=== PATIENT | male | born 1940 | race Caucasian/White ===

== ENCOUNTER 2018-08-12 22:36 | Inpatient (IN) | payer OTHER ==
--- NOTE | 2018-08-12 23:04 | PDOC ---
History of Present Illness - General Chief Complaint: Respiratory Stated Complaint: SIDE PAIN Time Seen by Provider: 08/12/18 22:55 History Source: Patient - History of Present Illness Initial Comments: 08/12/18 23:06 The patient is a 77 year old male with a PMH of Prostate CA (s/p resection)-- presents c/o sharp pain in his back. Patient states he was driving home from dinner in [place] with his family when he felt a sharp pain in his L flank. Pain lasted 30 minutes and was significantly relieved by urination. Also c/o productive (greenish sputum) cough for 1 week w/o fevers/chills, shortness of breath chest pain, lightheadedness, palpitations. States he had stress testing at [facility] last year and it was normal. Patient tachycardic (HR 137), tachypneic (RR 28) and hypoxic (SpO2 89% @ presentation NKDA Surgical: Prostate resection Social: former smoker - 2 PPD for 20+ years; social alcohol, denies recreational drugs PMD: Dr. Quinten Sloan As per EMR, patient evaluated in our ED for diarrhea and weakness as well as head and neck pain in 2012. No previous evaluations for cardiac or pulmonary complaints. Aortic CT in 2013 showed no aneursym. 08/12/18 23:45 Past History - Past Medical History Allergies/Adverse Reactions: Allergies Allergy/AdvReac Type Severity Reaction Status Date / Time No Known Allergies Allergy Verified 08/12/18 22:39 Home Medications: Ambulatory Orders Aspirin/Dipyridamole [Aggrenox] 1 combo PO DAILY 02/12/13 Atorvastatin Ca [Lipitor] 40 mg PO HS 02/12/13 Cyclobenzaprine HCl [Flexeril] 5 mg PO TID #12 tablet 03/06/13 Ibuprofen [Motrin] 800 mg PO TID #20 tablet 03/06/13 Oxycodone HCl/Acetaminophen [Percocet 5-325 mg Tablet] 1 - 2 tab PO Q6H #20 tablet 03/06/13 CVA: Yes (2009) COPD: No HTN: Yes Hypercholesterolemia: Yes - Immunization History Immunization Up to Date: No - Suicide/Smoking/Psychosocial Hx Smoking Status: No Smoking History: Former smoker Have you smoked in the past 12 months: No Number of Cigarettes Smoked Daily: 0 If you are a former smoker, when did you quit?: 35 years ago Information on smoking cessation initiated: No Drug/Substance Use Hx: No Substance Use Type: None Review of Systems - Review of Systems Constitutional: No: Chills, Fever HEENTM: No: Recent change in vision Respiratory: Yes: Cough. No: Shortness of Breath, Hemoptysis Cardiac (ROS): No: Chest Pain, Lightheadedness, Palpitations, Syncope ABD/GI: No: Constipated, Diarrhea, Nausea, Vomiting *Physical Exam - Vital Signs Last Vital Signs Temp Pulse Resp BP Pulse Ox 137 H 28 H 151/75 89 L 08/12/18 22:39 08/12/18 22:39 08/12/18 22:39 08/12/18 22:39 - Physical Exam General Appearance: Yes: Nourished, Appropriately Dressed HEENT: positive: Normal Voice, Hearing Grossly Normal Neck: positive: Trachea midline, Supple Respiratory/Chest: positive: Rapid RR, Wheezing (Bibasilar wheezing) Cardiovascular: positive: S1, S2, Tachycardia Vascular Pulses: Dorsalis-Pedis (R): 2+, Doralis-Pedis (L): 2+ Musculoskeletal: negative: CVA Tenderness (R), CVA Tenderness (L) Extremity: positive: Normal Capillary Refill, Normal Inspection Neurologic: positive: Fully Oriented, Alert Moderate Sedation - Procedure Monitoring Vital Signs: Procedure Monitoring Vital Signs Temperature Pulse Rate 137 H 08/12/18 22:39 Respiratory Rate 28 H 08/12/18 22:39 Blood Pressure 151/75 08/12/18 22:39 O2 Sat by Pulse Oximetry (%) 89 L 08/12/18 22:39 ED Treatment Course - LABORATORY CBC & Chemistry Diagram: 08/12/18 23:40 08/12/18 23:40 Medical Decision Making - Medical Decision Making 08/12/18 23:24 77 year old male in respiratory distress SpO2 94% on 4 L (not on home O2), RR and Tachycardic. Frontal diagnosis: PNA vs. r/o ACS vs. COPD exacerbation. Consider PE, however given low rish factors, will delay CT at this time. Will obtain basic labs, Troponin, EKG, CXR, ABG/VBG. Reassess. 08/13/18 00:05 Labs, ABG, VBG, CXR pending Patient signed out to Dr. Martinez (Resident) and Dr. Lino (Attending) for further management. *DC/Admit/Observation/Transfer Diagnosis at time of Disposition: Hypoxia - Referrals Referrals: Екатерина Sloan MD [Primary Care Provider] - - Patient Instructions - Post Discharge Activity
[2018-08-12] MEDS ORDERED: ALBUTEROL SO4 2.5/IPRATROPIUM 0.5 INH SOL 3 ML VIAL.NEB. NEB ONE ×2 (23:05→23:52)
[2018-08-12] MEDS ORDERED: SODIUM CHLORIDE 0.9% 500 ML INFUS.BAG IV ONE (23:31)
[2018-08-12] MEDS ORDERED: ALBUTEROL SO4 0.083% IH SOL 2.5 MG/3 ML VIAL.NEB. NEB ONE (23:54)
[2018-08-12] MEDS ORDERED: IPRATROPIUM BR 0.02% 0.5 MG/2.5 ML VIAL.NEB. NEB ONE (23:54)
[2018-08-12 23:59] LABS: VENOUS PC02 40.1 mmHg (38-52); VENOUS PH 7.41 (7.32-7.42); VENOUS PO2 32.8 mmHg (28-48)
--- NOTE | 2018-08-13 00:10 | PDOC ---
Attending Attestation - Resident Resident Name: Sarah Carlson - ED Attending Attestation I have performed the following: I have examined & evaluated the patient, The case was reviewed & discussed with the resident, I agree w/resident's findings & plan, Exceptions are as noted - HPI HPI: 08/13/18 00:09 77 yo male p/w left sided back pain that started while driving home Pain relieved after urination 08/13/18 00:10 hypoxic,tachycardic, tachypnic at presentation - Physicial Exam PE: 08/13/18 02:40 wnwd 77 yo male w cough,hypoxic and back pain head ncat neck supple lungs +scattered wheezing cvs tachycardia abd no rebound,no guarding ext no erythema ,no deformities neuro alert,conversant,ambulatory - Medical Decision Making 77 yo male with cough,sob awaiting cta chest, signed out to Dr Knox 08/13/18 17:36
[2018-08-13] MEDS ORDERED: methylPREDNISolone NA SUCC 125 MG/2 ML VIAL IVPUSH ONE (00:14)
--- NOTE | 2018-08-13 00:14 | PDOC ---
*Physical Exam - Vital Signs Last Vital Signs Temp Pulse Resp BP Pulse Ox 137 H 28 H 151/75 89 L 08/12/18 22:39 08/12/18 22:39 08/12/18 22:39 08/12/18 22:39 - Physical Exam Comments: 08/13/18 00:21 GENERAL: Awake, alert, and fully oriented, in no acute distress HEAD: No signs of trauma, normocephalic, atraumatic EYES: PERRLA, EOMI, sclera anicteric, conjunctiva clear ENT: Hearing grossly normal, nares patent, oropharynx clear without exudates. Moist mucosa NECK: Normal ROM, supple, no lymphadenopathy, JVD, or masses LUNGS: + diffuse expiratory rhonci. No distress, speaks full sentences, clear to auscultation bilaterally HEART: Regular rate and rhythm, normal S1 and S2, no murmurs, rubs or gallops, peripheral pulses normal and equal bilaterally. ABDOMEN: Soft, nontender, normoactive bowel sounds. No guarding, no rebound. No masses EXTREMITIES : Normal inspection, Normal range of motion, no edema. No clubbing or cyanosis. SKIN: Warm, Dry, normal turgor, no rashes or lesions noted ED Treatment Course - LABORATORY CBC & Chemistry Diagram: 08/12/18 23:40 08/12/18 23:40 - ADDITIONAL ORDERS Additional order review: Laboratory Results 08/12/18 23:40 VBG pH 7.41 POC VBG pCO2 40.1 POC VBG pO2 32.8 Mixed VBG HCO3 25.4 H - Medications Given in the ED: ED Medications Discontinued Medications Generic Name Dose Route Start Last Admin Trade Name Brady PRN Reason Stop Dose Admin Albuterol/Ipratropium 1 amp 08/12/18 23:05 08/13/18 00:12 Duoneb - NEB 08/12/18 23:06 1 amp ONCE ONE Administration Sodium Chloride 1,000 ml 08/12/18 23:31 08/13/18 00:12 Normal Saline - IV 08/12/18 23:32 1,000 ml ONCE ONE Administration Medical Decision Making - Medical Decision Making 08/13/18 00:16 77 yo M with h/o nephrolithiasis prostate ca. (s/p ressection). who p/w 30 minute, now resolved, left sided flank pain, alleviated with urination. + cough with green sputum production x 1 week. Denies N/V, F/C, CP, SOB, Palpitations, leg pain/swelling, lightheadedness. HR 137, RR 38, 02 89 %, BP 151/75, AF, A& Ox3. Received signout from Dr. Carlson. Aortic CT in 2013 showed no aneursym. ACS/AL r/o. R/o PNA. Possible COPD, asthma, nephrolithaisis/obstructive uroapthy , pyelonephritis, cysitis. Patient pending labs, duonebs, steroids, Flu, CXR. Ed Course: 08/13/18 00:58 EKG: HR 119 . Compared to EKG ( 02-12-2013), patient with RBBB, AVIVA leads II,III ,AvF. Nml interval and axis duration. Q waves lead II, AvF. Nml R wave progression. 08/13/18 01:01 CBC,CMP: Unremarkable Trop: Neg 08/13/18 01:44 CXR: Increased interstitial markings. 08/13/18 02:00 VBG: Unremarkable Pending CT CHEST 08/13/18 02:09 Pt. signed out to night team. Pending CT CHEST *DC/Admit/Observation/Transfer Diagnosis at time of Disposition: Hypoxia - Referrals Referrals: Екатерина Sloan MD [Primary Care Provider] - - Patient Instructions - Post Discharge Activity
[2018-08-13] MEDS ORDERED: methylPREDNISolone NA SUCC 125 MG/2 ML VIAL ONE (00:18)
[2018-08-13 00:27] LABS: BASO % 0.4 % (0-2.0); EOS % 0.4 % (0-4.5); HEMOGLOBIN 13.8 GM/dL (11.7-16.9); LYMPH % 6.6 % (8-40); MCH 30.4 pg (25.7-33.7); MCHC 35.4 g/dl (32.0-35.9); MEAN CELL VOLUME 85.8 fl (80-96); MEAN PLT VOLUME 9.6 fl (7.5-11.1); MONO % 9.4 % (3.8-10.2); NEUT % 83.2 % (42.8-82.8); PLATELET COUNT 285 K/MM3 (134-434); RBC 4.55 M/mm3 (4.00-5.60); RDW 13.7 % (11.9-15.9); WHITE BLOOD COUNT 9.3 K/mm3 (4.0-10.0)
[2018-08-13 00:43] LABS: ALBUMIN 3.2 g/dl (3.4-5.0); ALK PHOS 104 U/L (45-117); ANION GAP 6 MMOL/L (8-16); BILIRUBIN,TOTAL 0.4 mg/dL (0.2-1); BLOOD UREA NITROGEN 16 mg/dL (7-18); CALCIUM 8.5 mg/dL (8.5-10.1); CHLORIDE 103 mmol/L (98-107); CO2 27 mmol/L (21-32); CREATININE 0.9 mg/dL (0.55-1.3); GLUCOSE,RANDOM 283 mg/dL (74-106); POTASSIUM 4.2 mmol/L (3.5-5.1); SGOT/AST 25 U/L (15-37); SGPT/ALT 34 U/L (13-61); SODIUM 137 mmol/L (136-145); TOT PROT 6.8 g/dl (6.4-8.2)
--- NOTE | 2018-08-13 02:25 | PDOC ---
*Physical Exam - Vital Signs Last Vital Signs Temp Pulse Resp BP Pulse Ox 137 H 28 H 151/75 89 L 08/12/18 22:39 08/12/18 22:39 08/12/18 22:39 08/12/18 22:39 ED Treatment Course - LABORATORY CBC & Chemistry Diagram: 08/12/18 23:40 08/12/18 23:40 - ADDITIONAL ORDERS Additional order review: Laboratory Results 08/12/18 08/12/18 23:40 23:40 VBG pH 7.41 POC VBG pCO2 40.1 POC VBG pO2 32.8 Mixed VBG HCO3 25.4 H Sodium 137 Potassium 4.2 Chloride 103 Carbon Dioxide 27 Anion Gap 6 L BUN 16 Creatinine 0.9 Creat Clearance w eGFR > 60 Random Glucose 283 H Calcium 8.5 Total Bilirubin 0.4 AST 25 ALT 34 Alkaline Phosphatase 104 Creatine Kinase 144 Troponin I < 0.02 B-Natriuretic Peptide 157.0 Total Protein 6.8 Albumin 3.2 L 08/12/18 23:40 RBC 4.55 MCV 85.8 MCHC 35.4 RDW 13.7 MPV 9.6 D Neutrophils % 83.2 H Lymphocytes % 6.6 L D Monocytes % 9.4 Eosinophils % 0.4 D Basophils % 0.4 - Medications Given in the ED: ED Medications Discontinued Medications Generic Name Dose Route Start Last Admin Trade Name Ahmetq PRN Reason Stop Dose Admin Albuterol/Ipratropium 1 amp 08/12/18 23:05 08/13/18 00:12 Duoneb - NEB 08/12/18 23:06 1 amp ONCE ONE Administration Methylprednisolone Sodium Succinate 125 mg 08/13/18 00:14 08/13/18 00:21 Solu-Medrol - IVPUSH 08/13/18 00:15 125 mg ONCE ONE Administration Sodium Chloride 1,000 ml 08/12/18 23:31 08/13/18 00:12 Normal Saline - IV 08/12/18 23:32 1,000 ml ONCE ONE Administration Medical Decision Making - Medical Decision Making 08/13/18 02:[address] Martinez. Patient is a 77 yo male w/ pmh of prostate CA s/p resection who presents for evaluation of cough with SOB and L flank pain ( resolved). Patient CXR concerning for possible infiltrate. Patient currently pending chest CTA for further evaluation. 08/13/18 03:58 Patient noted to have bilateral lobe infiltrate. Also scattered liver foci concerning for cysts vs. neoplasm. In setting of pneumonia with increased oxygen requirement admitting patient for pneumonia treatment and further evaluation. *DC/Admit/Observation/Transfer Diagnosis at time of Disposition: Hypoxia, Liver disease, unspecified Pneumonia Qualifiers: Pneumonia type: due to unspecified organism Laterality: bilateral Lung location : unspecified part of lung Qualified Code(s): J18.9 - Pneumonia, unspecified organism - Discharge Dispostion Decision to Admit order: Yes - Prescriptions Prescriptions: Albuterol 2.5/Ipratropium 0.5 [Duoneb -] 1 neb IH QID PRN #1 vial.neb. PRN Reason: Cough Azithromycin [Zithromax Tri-Sreedhar (3 DAYS) -] 500 mg PO DAILY #3 tablet Prednisone [Prednisone 50 MG TABLETS] 50 mg PO DAILY #4 tablet MDD 1 tab - Referrals Referrals: Екатерина Sloan MD [Primary Care Provider] - - Patient Instructions - Post Discharge Activity
[2018-08-13] MEDS ORDERED: AZITHROMYCIN IVPB 500 MG in DEXTROSE 5%-WATER - 250 ML IVPB ONE (03:58)
[2018-08-13] MEDS ORDERED: CEFTRIAXONE 1,000 MG in DEXTROSE 5%-WATER - 50 ML IVPB ONE (03:58)
[2018-08-13] MEDS ORDERED: AZITHROMYCIN IVPB 500 MG/250 ML BAG IVPB ONE (06:45)
[2018-08-13] MEDS ORDERED: CEFTRIAXONE 1 GM/50 ML BAG ONE (06:46)
[2018-08-13 07:49] LABS: URINE APPEARANCE CLEAR; URINE BILIRUBIN NEGATIVE (<2.0 mg/dL); URINE COLOR YELLOW; URINE GLUCOSE (UA) 3+ (NEGATIVE); URINE KETONE NEGATIVE (NEGATIVE); URINE LEUK ESTERASE NEGATIVE (NEGATIVE); URINE NITRITE NEGATIVE (NEGATIVE); URINE PROTEIN 1+ (NEGATIVE); URINE UROBILINOGEN NEGATIVE mg/dL (0.2-1.0)
[2018-08-13 07:52] LABS: BASO % 0.2 % (0-2.0); HEMATOCRIT 38.1 % (35.4-49); HEMOGLOBIN 13.2 GM/dL (11.7-16.9); LYMPH % 6.1 % (8-40); MCH 29.8 pg (25.7-33.7); MCHC 34.7 g/dl (32.0-35.9); MEAN PLT VOLUME 9.6 fl (7.5-11.1); MONO % 3.7 % (3.8-10.2); PLATELET COUNT 269 K/MM3 (134-434); RBC 4.43 M/mm3 (4.00-5.60); RDW 13.6 % (11.9-15.9); WHITE BLOOD COUNT 11.9 K/mm3 (4.0-10.0)
[2018-08-13 08:09] LABS: CALCIUM OXALATE CRYSTALS RARE /hpf (NONE SEEN); URINE MUCUS RARE
[2018-08-13 08:29] LABS: ALK PHOS 95 U/L (45-117); ANION GAP 10 MMOL/L (8-16); BILIRUBIN,TOTAL 0.5 mg/dL (0.2-1); BLOOD UREA NITROGEN 13 mg/dL (7-18); CALCIUM 8.6 mg/dL (8.5-10.1); CHLORIDE 106 mmol/L (98-107); CO2 24 mmol/L (21-32); CREATININE 0.6 mg/dL (0.55-1.3); GLUCOSE,RANDOM 256 mg/dL (74-106); SGOT/AST 22 U/L (15-37); SGPT/ALT 31 U/L (13-61); SODIUM 139 mmol/L (136-145); TOT PROT 6.1 g/dl (6.4-8.2)
[2018-08-13 08:56] VITALS: BMI 23.6
[2018-08-13] MEDS ORDERED: PIPERACILLIN/TAZOB 2.25 GM 3.375 GM in DEXTROSE 5%-WATER - 50 ML IVPB SCH (09:00)
[2018-08-13] MEDS ORDERED: PIPERACILLIN/TAZOBACTAM 2.25 GM VIAL IVPB ONE ×2 (09:25→09:30)
[2018-08-13] MEDS ORDERED: DEXTROSE 5%-WATER - 50 ML IVPB ONE ×2 (09:25→09:30)
[2018-08-13] MEDS: ASPIRIN 81 MG CHEWABLE TABLETS PO SCH (09:26)
--- NOTE | 2018-08-13 10:00 | EKG ---
Test Reason : Blood Pressure : / mmHG Vent. Rate : 119 BPM Atrial Rate : 119 BPM P-R Int : 166 ms QRS Dur : 142 ms QT Int : 324 ms P-R-T Axes : 054 059 028 degrees QTc Int : 455 ms SINUS TACHYCARDIA RIGHT BUNDLE BRANCH BLOCK POSSIBLE INFERIOR INFARCT (CITED ON OR BEFORE 12-FEB-2013) ABNORMAL ECG Confirmed by Daniel Quiñonez MD ([id number]) on 08/13/2018 10:00:23 AM Referred By: Confirmed By:Daniel Quiñonez MD
--- NOTE | 2018-08-13 10:44 | PN ---
Progress Note (short form) - Note Progress Note: ID CONSULT DICTATED COMMUNITY ACQUIRED VS. ATYPICAL PNEUMONIA R/O SEPSIS SECONDARY TO PNEUMONIA AWAIT WORKUP EMPIRIC CEFTRIAXONE/ ZITHROMAX
--- NOTE | 2018-08-13 11:20 | CONS ---
DATE OF CONSULTATION: DATE OF DICTATION: 08/13/2018 HISTORY: The patient is a 77-year-old male evaluated for pneumonia. He was admitted to the hospital August 12, 2018. He developed abrupt onset of left flank pain. The patient states he was driving home from dinner when he developed abrupt onset of left-sided flank pain. It lasted approximately 30 minutes and was relieved by urination. The patient thought that this pain was similar to the pain he experienced when he had a kidney stone years ago. Over the past 1 week he has had respiratory tract symptoms including cough productive of greenish sputum and dyspnea on exertion. He presented to the emergency room where he was tachycardic, tachypneic, and hypoxemic. A CT angiogram was performed and shows bibasilar consolidations left greater than right. The patient denies any fever or chills. No known ill contacts. No recent travel. No recent hospitalizations. He did not receive influenza vaccine. The patient states he did receive pneumococcal vaccine years ago, however, had an adverse reaction to it. PAST MEDICAL HISTORY: Positive for stroke, hypertension, hyperlipidemia, nephrolithiasis, prostate cancer. PAST SURGICAL HISTORY: Status post prostate resection and laser lithotripsy. SOCIAL HISTORY: He is a former smoker. Occasional ETOH. Lives at home with family members. SYSTEMS REVIEW: Neurologic: No loss of consciousness, seizure activity, focal weakness. Cardiac: Negative chest pain or palpitations. Respiratory: As per HPI. Gastrointestinal: Negative vomiting or diarrhea. Genitourinary: As per HPI. MEDICATIONS: Include Aggrenox, Lipitor, Flexeril, Motrin, Percocet. LABORATORY DATA: White count 11.9, hematocrit 38.1, platelet count 269, BUN 13, creatinine 0.6. Liver enzymes normal. Urinalysis: 2 white cells. Influenza swab negative. PHYSICAL EXAMINATION: General: He is weak appearing. He is supine in bed. He is slightly short of breath at rest. Vital Signs: Temperature 97.5, blood pressure 129/76, pulse 75 and regular, respirations 20 per minute. HEENT: Sclerae anicteric. Heart: S1, S2. Lungs: Rales at the bases bilaterally. Abdomen: Soft. No tenderness elicited. No CVA tenderness. Extremities: Negative for edema. IMPRESSION: 1. Community-acquired versus atypical pneumonia. 2. Rule out sepsis secondary to pneumonia. PLAN: We will obtain blood cultures, urine Legionella, pneumococcal antigens, sputum culture. Empiric antibiotic coverage for community-acquired versus atypical pneumonia with ceftriaxone 2 g IV piggyback daily and Zithromax 500 mg daily. Influenza vaccine and pneumococcal vaccine if the patient is agreeable. Await official reading of CAT scan of the chest. We will follow. Thank you for the kind referral. JEWELL PLUMMER M.D. [id number]
--- NOTE | 2018-08-13 12:30 | HP ---
Admitting History and Physical - Admission Chief Complaint: c/o of rt back pain resolved w urination. 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 Pulmonary: Yes: Other (sob) Endocrine: Yes: Diabetes Mellitus - Past Surgical History Past Surgical History: Yes: None - Smoking History Smoking history: Former smoker Have you smoked in the past 12 months: No Aproximately how many cigarettes per day: 0 If you are a former smoker, when did you quit?: 35 years ago - Alcohol/Substance Use Hx Alcohol Use: No Home Medications - Allergies Allergies/Adverse Reactions: Allergies Allergy/AdvReac Type Severity Reaction Status Date / Time No Known Allergies Allergy Verified 08/12/18 22:39 - Home Medications Home Medications: Ambulatory Orders Aspirin/Dipyridamole [Aggrenox] 1 combo PO DAILY 02/12/13 Atorvastatin Ca [Lipitor] 40 mg PO HS 02/12/13 Cyclobenzaprine HCl [Flexeril] 5 mg PO TID #12 tablet 03/06/13 Ibuprofen [Motrin] 800 mg PO TID #20 tablet 03/06/13 Oxycodone HCl/Acetaminophen [Percocet 5-325 mg Tablet] 1 - 2 tab PO Q6H #20 tablet 03/06/13 Albuterol 2.5/Ipratropium 0.5 [Duoneb -] 1 neb IH QID PRN #1 vial.neb. 08/13/18 Azithromycin [Zithromax Tri-Sreedhar (3 DAYS) -] 500 mg PO DAILY #3 tablet 08/13/18 Prednisone [Prednisone 50 MG TABLETS] 50 mg PO DAILY #4 tablet MDD 1 tab Family Disease History - Family Disease History Family History: Unremarkable Review of Systems - Review of Systems Respiratory: reports: Cough Physical Examination Vital Signs: Vital Signs Temperature 97.5 F L 08/13/18 08:45 Pulse Rate 75 08/13/18 08:45 Respiratory Rate 20 08/13/18 08:45 Blood Pressure 129/71 08/13/18 08:45 O2 Sat by Pulse Oximetry (%) 93 L 08/13/18 08:45 Respiratory: Yes: Diminished Labs: CBC, BMP 08/13/18 07:15 08/13/18 07:15 Assessment/Plan id pulm antibiotics supportive lung care incentive spiroi
--- NOTE | 2018-08-13 12:45 | CON.PULM ---
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 Admitted via the ER due to sharp pain in his left back. For the last several days there has been experiencing congested cough with green /yellow phlegm. Has been taking several OTC meds without relief. No travel history or sick contacts. No hemoptysis. CT: Bibasilar / lingular infiltrates with associated atelectasis / mediastinal adenopathy: 1.6 x 1.5 & 1.8 x 1.2 cm He has not had previous CT chest imaging for comparison - History Source History Provided By: Patient Limitations to Obtaining History: Poor Historian - Past Medical History [employer]: Yes: TIA Pulmonary: Yes: Bronchitis, Other (sob). No: Asthma, O2 Dependent, Pneumonia, Previously Intubated, Pulmonary Embolus, Sleep Apnea Endocrine: Yes: Diabetes Mellitus - Past Surgical History Past Surgical History: Yes: None - Alcohol/Substance Use Hx Alcohol Use: No - Smoking History Smoking history: Former smoker Have you smoked in the past 12 months: No Aproximately how many cigarettes per day: 0 If you are a former smoker, when did you quit?: 35 years ago Home Medications - Allergies Allergies/Adverse Reactions: Allergies Allergy/AdvReac Type Severity Reaction Status Date / Time No Known Allergies Allergy Verified 08/12/18 22:39 - Home Medications Home Medications: Ambulatory Orders Aspirin/Dipyridamole [Aggrenox] 1 combo PO DAILY 02/12/13 Atorvastatin Ca [Lipitor] 40 mg PO HS 02/12/13 Cyclobenzaprine HCl [Flexeril] 5 mg PO TID #12 tablet 03/06/13 Ibuprofen [Motrin] 800 mg PO TID #20 tablet 03/06/13 Oxycodone HCl/Acetaminophen [Percocet 5-325 mg Tablet] 1 - 2 tab PO Q6H #20 tablet 03/06/13 Albuterol 2.5/Ipratropium 0.5 [Duoneb -] 1 neb IH QID PRN #1 vial.neb. 08/13/18 Azithromycin [Zithromax Tri-Sreedhar (3 DAYS) -] 500 mg PO DAILY #3 tablet 08/13/18 Prednisone [Prednisone 50 MG TABLETS] 50 mg PO DAILY #4 tablet MDD 1 tab Review of Systems - Review of Systems Constitutional: reports: Fever, Malaise. denies: Chills, Night Sweats, Unintentional Wgt. Loss, Weakness Eyes: reports: No Symptoms HENT: reports: No Symptoms, Mouth Swelling Cardiovascular: reports: Shortness of Breath. denies: Chest Pain, Edema, Palpitations Respiratory: reports: Cough, SOB on Exertion. denies: Hemoptysis, Snoring, SOB , Wheezing Gastrointestinal: reports: No Symptoms Genitourinary: reports: Flank Pain Breasts: reports: No Symptoms Reported Musculoskeletal: reports: No Symptoms Integumentary: reports: No Symptoms Neurological: reports: No Symptoms Endocrine: reports: No Symptoms Hematology/Lymphatic: reports: No Symptoms Psychiatric: reports: No Symptoms Physical Exam Vital Sings: Vital Signs Temperature 97.5 F L 08/13/18 08:45 Pulse Rate 75 08/13/18 08:45 Respiratory Rate 20 08/13/18 08:45 Blood Pressure 129/71 08/13/18 08:45 O2 Sat by Pulse Oximetry (%) 93 L 08/13/18 08:45 Constitutional: Yes: No Distress, Calm Eyes: Yes: Conjunctiva Clear, EOM Intact HENT: Yes: Atraumatic, Normocephalic Neck: Yes: Supple, Trachea Midline Cardiovascular: Yes: Regular Rate and Rhythm Respiratory: Yes: Cough, Diminished, Rhonchi, SOB on Exertion. No: Accessory Muscle Use, Rales, SOB, Stridor, Tachypnea, Wheezes ...Inspection: Yes: WNL ...Clubbing: No Gastrointestinal: Yes: Normal Bowel Sounds, Soft Renal/: Yes: WNL Musculoskeletal: Yes: WNL Extremities: Yes: WNL Edema: No Peripheral Pulses WNL: Yes Integumentary: Yes: WNL Neurological: Yes: WNL, Alert, Oriented ...Motor Strength: WNL Psychiatric: Yes: WNL, Alert, Oriented Labs: CBC, BMP 08/13/18 07:15 08/13/18 07:15 Imaging - Results Chest X-ray: Report Reviewed, Image Reviewed Cat Scan: Report Reviewed, Image Reviewed Problem List - Problems (1) Atelectasis Code(s): J98.11 - ATELECTASIS (2) Mediastinal lymphadenopathy Code(s): R59.0 - LOCALIZED ENLARGED LYMPH NODES (3) Hypoxia Code(s): R09.02 - HYPOXEMIA (4) Pneumonia Code(s): J18.9 - PNEUMONIA, UNSPECIFIED ORGANISM Qualifiers: Pneumonia type: due to unspecified organism Laterality: bilateral Lung location: unspecified part of lung Qualified Code(s): J18.9 - Pneumonia, unspecified organism Assessment/Plan ABX per ID O2 as needed Check sputum Check urine antigen VTE prophylaxis Should have baseline PFTs after stable as an outpatient No smoking BD TX PRN No indication for systemic steroids at this time Can consider repeat imaging in about 6 weeks after discharge to document resolution of changes and mediastinal adenopathy Will follow Thank you. Dr Green
[2018-08-13] MEDS: metFORMIN HCL 500 MG TABLET (FP) PO SCH (16:24)
[2018-08-13] MEDS ORDERED: INSULIN (NOVOLOG) ASPART 100 UNITS/ML 10ML VIAL SQ ONE (19:30)
[2018-08-14] MEDS: metFORMIN HCL 500 MG TABLET (FP) PO SCH ×2 (06:12→17:10)
[2018-08-14] MEDS ORDERED: INSULIN (LEVEMIR) 100 UNITS/ML UNITS SQ ONE (07:00)
[2018-08-14 07:34] LABS: BASO % 0.8 % (0-2.0); HEMATOCRIT 38.8 % (35.4-49); HEMOGLOBIN 12.5 GM/dL (11.7-16.9); LYMPH % 8.7 % (8-40); MCH 27.8 pg (25.7-33.7); MCHC 32.2 g/dl (32.0-35.9); MEAN CELL VOLUME 86.2 fl (80-96); MEAN PLT VOLUME 9.5 fl (7.5-11.1); MONO % 8.1 % (3.8-10.2); NEUT % 82.4 % (42.8-82.8); PLATELET COUNT 319 K/MM3 (134-434); RDW 13.5 % (11.9-15.9)
[2018-08-14 07:38] LABS: ANION GAP 9 MMOL/L (8-16); BLOOD UREA NITROGEN 19 mg/dL (7-18); CALCIUM 9.1 mg/dL (8.5-10.1); CHLORIDE 107 mmol/L (98-107); CO2 25 mmol/L (21-32); CREATININE 0.6 mg/dL (0.55-1.3); GLUCOSE,RANDOM 251 mg/dL (74-106); SODIUM 141 mmol/L (136-145)
[2018-08-14] MEDS: CEFTRIAXONE 2 GM in DEXTROSE 5%-WATER 100 ML IVPB SCH (09:41)
[2018-08-14] MEDS: amLODIPine BESYLATE 10 MG TABLET (FP) PO SCH (09:41)
[2018-08-14] MEDS: ASPIRIN 81 MG CHEWABLE TABLETS PO SCH (09:41)
[2018-08-14] MEDS: AZITHROMYCIN IVPB 500 MG/250 ML BAG IVPB SCH (10:36)
--- NOTE | 2018-08-14 13:17 | PN ---
Progress Note, Physician Chief Complaint: feels better less cogh vss - Current Medication List Current Medications: Active Medications Amlodipine Besylate (Norvasc -) 10 mg PO DAILY [facility] Last Admin: 08/14/18 09:41 Dose: 10 mg Aspirin (Asa -) 81 mg PO DAILY [facility] Last Admin: 08/14/18 09:41 Dose: 81 mg Ceftriaxone Sodium 2 gm/ (Dextrose) 100 mls @ 200 mls/hr IVPB DAILY [facility]; Protocol Last Admin: 08/14/18 09:41 Dose: 200 mls/hr Azithromycin (Zithromax 500mg Ivpb (Pre-Docked)) 500 mg in 250 mls @ 250 mls/ hr IVPB DAILY [facility] Last Admin: 08/14/18 10:36 Dose: 250 mls/hr Ipratropium [place] (Atrovent 0.02% Nebulizer -) 1 amp NEB Q6H PRN PRN Reason: DYSPEPSIA Stop: 08/20/18 09:57 Metformin HCl (Glucophage -) 1,000 mg PO BID@0700,1630 [facility] Last Admin: 08/14/18 06:12 Dose: 1,000 mg - Objective Vital Signs: Vital Signs Temperature 98.9 F 08/14/18 10:00 Pulse Rate 78 08/14/18 10:00 Respiratory Rate 20 08/14/18 10:00 Blood Pressure 141/79 08/14/18 10:00 O2 Sat by Pulse Oximetry (%) 95 08/14/18 09:00 Constitutional: Yes: Well Nourished Eyes: Yes: WNL HENT: Yes: WNL Neck: Yes: WNL Cardiovascular: Yes: WNL Respiratory: Yes: Rhonchi Gastrointestinal: Yes: WNL ...Rectal Exam: Yes: Deferred Genitourinary: Yes: WNL Breast(s): Yes: WNL Musculoskeletal: Yes: WNL Labs: CBC, BMP 08/14/18 06:00 08/14/18 06:00 Assessment/Plan gu f/u watch wbc ? higher sono abd son cocerned liver ? hemangiomas will do ct chest 3 to 4 mths f/u cxr on sunday to pneumonia resolving
[2018-08-14] MEDS ORDERED: TUBERCULIN PPD 5 TU/0.1ML SYRINGE (IN PATIENT USE ONLY) ID ONE (13:18)
[2018-08-14] MEDS: SODIUM CHLORIDE 0.45% 1,000 ML IV SCH (13:57)
--- NOTE | 2018-08-14 14:35 | PN ---
Progress Note (short form) - Note Progress Note: reports clinical improvement less congestion still with cough no fever last travel to [place] in april, returned in May Vital Signs Period Temp Pulse Resp BP Sys/Vu Pulse Ox Last 24 Hr 97.4 F-98.9 F 71-103 18-21 113-141/60-88 95-98 cor-rrr lungs bilateral rhonchi abd soft,nt ext no edema CBC, BMP 08/14/18 06:00 08/14/18 06:00 Microbiology 08/14/18 11:35 Sputum - Expectorated Gram Stain - Final 08/14/18 11:35 Urine For Antigen Detection Legionella Antigen - Final 08/14/18 11:35 Urine For Antigen Detection Streptococcus pneumoniae Antigen (M - Final 08/13/18 10:54 Blood - Peripheral Venous Blood Culture - Preliminary NO GROWTH OBTAINED AFTER 24 HOURS, INCUBATION TO CONTINUE FOR 4 DAYS. 08/13/18 11:00 Blood - Peripheral Venous Blood Culture - Preliminary NO GROWTH OBTAINED AFTER 24 HOURS, INCUBATION TO CONTINUE FOR 4 DAYS. a/p multilobar pneumonia suspect leukocytosis is steroid effect (received steroids yesterday) continue rocephin/zithromax clinically improved
--- NOTE | 2018-08-14 15:50 | PN ---
Progress Note, Physician History of Present Illness: PULMONARY ALERT,FEELING BETTER,LESS COUGH,LESS CONGESTED - Current Medication List Current Medications: Active Medications Amlodipine Besylate (Norvasc -) 10 mg PO DAILY [facility] Last Admin: 08/14/18 09:41 Dose: 10 mg Aspirin (Asa -) 81 mg PO DAILY [facility] Last Admin: 08/14/18 09:41 Dose: 81 mg Ceftriaxone Sodium 2 gm/ (Dextrose) 100 mls @ 200 mls/hr IVPB DAILY [facility]; Protocol Last Admin: 08/14/18 09:41 Dose: 200 mls/hr Azithromycin (Zithromax 500mg Ivpb (Pre-Docked)) 500 mg in 250 mls @ 250 mls/ hr IVPB DAILY [facility] Last Admin: 08/14/18 10:36 Dose: 250 mls/hr Sodium Chloride (1/2 Normal Saline) 1,000 mls @ 75 mls/hr IV ASDIR [facility] Last Admin: 08/14/18 13:57 Dose: 75 mls/hr Ipratropium [place] (Atrovent 0.02% Nebulizer -) 1 amp NEB Q6H PRN PRN Reason: DYSPEPSIA Stop: 08/20/18 09:57 Metformin HCl (Glucophage -) 1,000 mg PO BID@0700,1630 [facility] Last Admin: 08/14/18 06:12 Dose: 1,000 mg - Objective Vital Signs: Vital Signs Temperature 98.9 F 08/14/18 10:00 Pulse Rate 78 08/14/18 10:00 Respiratory Rate 20 08/14/18 10:00 Blood Pressure 141/79 08/14/18 10:00 O2 Sat by Pulse Oximetry (%) 95 08/14/18 09:00 Constitutional: Yes: Well Nourished, Calm Eyes: Yes: WNL HENT: Yes: WNL Neck: Yes: WNL Cardiovascular: Yes: Regular Rate and Rhythm, S1, S2 Respiratory: Yes: Rhonchi (SCATTERED RITA RHONCHI) Gastrointestinal: Yes: Normal Bowel Sounds, Soft Extremities: Yes: WNL Edema: No Labs: CBC, BMP 08/14/18 06:00 08/14/18 06:00 Assessment/Plan Problem List - Problems (1) Atelectasis Code(s): J98.11 - ATELECTASIS (2) Mediastinal lymphadenopathy Code(s): R59.0 - LOCALIZED ENLARGED LYMPH NODES (3) Hypoxia Code(s): R09.02 - HYPOXEMIA (4) Pneumonia Code(s): J18.9 - PNEUMONIA, UNSPECIFIED ORGANISM Qualifiers: Pneumonia type: due to unspecified organism Laterality: bilateral Lung location: unspecified part of lung Qualified Code(s): J18.9 - Pneumonia, unspecified organism Assessment/Plan ABX per ID O2 as needed VTE prophylaxis PFTs as an outpatient No smoking BD TX PRN repeat imaging in about 6 weeks after discharge to document resolution of changes and mediastinal adenopathy DR [place]ISH
--- NOTE | 2018-08-14 17:17 | CONSULT ---
Consult Consult Specialty:: UROLOGY Reason for Consultation:: Left Renal stone - History of Present Illness Chief Complaint: 77 Y/O Male patient with BPH admitted for Pneumonia treatment 2 days ago, he has history of Left flank pain 3 days on/ off scale 3/10. voiding well. Renal U/S show left renal stone 7 mm no hydro. thicken bladder wall. S.creat 0.9 BUN 19 WBC 16 - Past Medical History [facility]: Yes: TIA Pulmonary: Yes: Bronchitis, Other (sob). No: Asthma, O2 Dependent, Pneumonia, Previously Intubated, Pulmonary Embolus, Sleep Apnea Endocrine: Yes: Diabetes Mellitus - Past Surgical History Past Surgical History: Yes: None - Alcohol/Substance Use Hx Alcohol Use: No - Smoking History Smoking history: Former smoker Have you smoked in the past 12 months: No Aproximately how many cigarettes per day: 0 If you are a former smoker, when did you quit?: 35 years ago Home Medications - Allergies Allergies/Adverse Reactions: Allergies Allergy/AdvReac Type Severity Reaction Status Date / Time No Known Allergies Allergy Verified 08/12/18 22:39 - Home Medications Home Medications: Ambulatory Orders Aspirin/Dipyridamole [Aggrenox] 1 combo PO DAILY 02/12/13 Atorvastatin Ca [Lipitor] 40 mg PO HS 02/12/13 Cyclobenzaprine HCl [Flexeril] 5 mg PO TID #12 tablet 03/06/13 Ibuprofen [Motrin] 800 mg PO TID #20 tablet 03/06/13 Oxycodone HCl/Acetaminophen [Percocet 5-325 mg Tablet] 1 - 2 tab PO Q6H #20 tablet 03/06/13 Albuterol 2.5/Ipratropium 0.5 [Duoneb -] 1 neb IH QID PRN #1 vial.neb. 08/13/18 Azithromycin [Zithromax Tri-Sreedhar (3 DAYS) -] 500 mg PO DAILY #3 tablet 08/13/18 Prednisone [Prednisone 50 MG TABLETS] 50 mg PO DAILY #4 tablet MDD 1 tab Physical Exam Vital Signs: Vital Signs Temperature 98.9 F 08/14/18 10:00 Pulse Rate 78 08/14/18 10:00 Respiratory Rate 20 08/14/18 10:00 Blood Pressure 141/79 08/14/18 10:00 O2 Sat by Pulse Oximetry (%) 95 08/14/18 09:00 Labs: CBC, BMP 08/14/18 06:00 08/14/18 06:00 Assessment/Plan Left Renal stone Thick bladder wall Plan: once his Pnumonia resolve and his medical condition is stable will schedule him for Cystoscopy and Left ESWL.
[2018-08-15] MEDS: SODIUM CHLORIDE 0.45% 1,000 ML IV SCH ×2 (02:26→17:56)
[2018-08-15 05:45] LABS: BASO % 0.3 % (0-2.0); EOS % 0.4 % (0-4.5); HEMATOCRIT 38.5 % (35.4-49); HEMOGLOBIN 12.6 GM/dL (11.7-16.9); LYMPH % 17.4 % (8-40); MCHC 32.6 g/dl (32.0-35.9); MEAN CELL VOLUME 85.9 fl (80-96); MONO % 10.8 % (3.8-10.2); NEUT % 71.1 % (42.8-82.8); PLATELET COUNT 329 K/MM3 (134-434); RBC 4.48 M/mm3 (4.00-5.60); WHITE BLOOD COUNT 14.3 K/mm3 (4.0-10.0)
[2018-08-15] MEDS: metFORMIN HCL 500 MG TABLET (FP) PO SCH ×2 (06:03→17:06)
[2018-08-15 06:09] LABS: ANION GAP 9 MMOL/L (8-16); BLOOD UREA NITROGEN 16 mg/dL (7-18); CALCIUM 8.5 mg/dL (8.5-10.1); CHLORIDE 107 mmol/L (98-107); CO2 27 mmol/L (21-32); CREATININE 0.6 mg/dL (0.55-1.3); GLUCOSE,RANDOM 115 mg/dL (74-106); POTASSIUM 3.6 mmol/L (3.5-5.1); SODIUM 142 mmol/L (136-145)
[2018-08-15] MEDS ORDERED: DEXTROSE 5%-WATER 100 ML IVPB ONE (10:10)
[2018-08-15] MEDS: CEFTRIAXONE 2 GM in DEXTROSE 5%-WATER 100 ML IVPB SCH (10:12)
[2018-08-15] MEDS: ASPIRIN 81 MG CHEWABLE TABLETS PO SCH (10:49)
[2018-08-15] MEDS: amLODIPine BESYLATE 10 MG TABLET (FP) PO SCH (10:49)
[2018-08-15] MEDS: AZITHROMYCIN IVPB 500 MG/250 ML BAG IVPB SCH (10:52)
--- NOTE | 2018-08-15 11:26 | PN ---
Progress Note, Physician Chief Complaint: feels better - Current Medication List Current Medications: Active Medications Amlodipine Besylate (Norvasc -) 10 mg PO DAILY [facility] Last Admin: 08/15/18 10:49 Dose: 10 mg Aspirin (Asa -) 81 mg PO DAILY [facility] Last Admin: 08/15/18 10:49 Dose: 81 mg Ceftriaxone Sodium 2 gm/ (Dextrose) 100 mls @ 200 mls/hr IVPB DAILY [facility]; Protocol Last Admin: 08/15/18 10:12 Dose: 200 mls/hr Azithromycin (Zithromax 500mg Ivpb (Pre-Docked)) 500 mg in 250 mls @ 250 mls/ hr IVPB DAILY [facility] Last Admin: 08/15/18 10:52 Dose: 250 mls/hr Sodium Chloride (1/2 Normal Saline) 1,000 mls @ 75 mls/hr IV ASDIR [facility] Last Admin: 08/15/18 02:26 Dose: 75 mls/hr Ipratropium [place] (Atrovent 0.02% Nebulizer -) 1 amp NEB Q6H PRN PRN Reason: DYSPEPSIA Stop: 08/20/18 09:57 Metformin HCl (Glucophage -) 1,000 mg PO BID@0700,1630 [facility] Last Admin: 08/15/18 06:03 Dose: 1,000 mg - Objective Vital Signs: Vital Signs Temperature 98.6 F 08/15/18 10:00 Pulse Rate 70 08/15/18 10:00 Respiratory Rate 20 08/15/18 10:00 Blood Pressure 150/76 08/15/18 10:00 O2 Sat by Pulse Oximetry (%) 95 08/14/18 21:00 Constitutional: Yes: Well Nourished Eyes: Yes: WNL HENT: Yes: WNL Neck: Yes: WNL Cardiovascular: Yes: WNL Respiratory: Yes: WNL Gastrointestinal: Yes: WNL ...Rectal Exam: Yes: Deferred Genitourinary: Yes: WNL Breast(s): Yes: WNL Musculoskeletal: Yes: WNL Extremities: Yes: WNL Edema: No Peripheral Pulses WNL: Yes Integumentary: Yes: WNL Neurological: Yes: WNL ...Motor Strength: WNL Psychiatric: Yes: WNL Labs: CBC, BMP 08/15/18 05:30 08/15/18 05:30 Assessment/Plan if cxr shows resolution ? d/c in am ct x 6 mths to f/u hilar lyphadenapathy mri outpr for liver complexs ? cyst wbc to be chk am i.n
[2018-08-15] MEDS: IPRATROPIUM BR 0.02% 0.5 MG/2.5 ML VIAL.NEB. NEB PRN ×2 (11:39→20:03)
[2018-08-16 06:00] VITALS: TEMP 98
[2018-08-16] MEDS: metFORMIN HCL 500 MG TABLET (FP) PO SCH (06:14)
[2018-08-16 07:19] LABS: BASO % 0.9 % (0-2.0); EOS % 1.1 % (0-4.5); HEMATOCRIT 40.4 % (35.4-49); HEMOGLOBIN 13.1 GM/dL (11.7-16.9); LYMPH % 14.3 % (8-40); MCH 27.8 pg (25.7-33.7); MCHC 32.4 g/dl (32.0-35.9); MEAN CELL VOLUME 85.8 fl (80-96); MEAN PLT VOLUME 8.7 fl (7.5-11.1); MONO % 8.9 % (3.8-10.2); NEUT % 74.8 % (42.8-82.8); PLATELET COUNT 363 K/MM3 (134-434); RBC 4.71 M/mm3 (4.00-5.60); RDW 13.7 % (11.9-15.9); WHITE BLOOD COUNT 12.8 K/mm3 (4.0-10.0)
[2018-08-16] MEDS: IPRATROPIUM BR 0.02% 0.5 MG/2.5 ML VIAL.NEB. NEB PRN (07:31)
[2018-08-16] MEDS: SODIUM CHLORIDE 0.45% 1,000 ML IV SCH (09:25)
[2018-08-16] MEDS: amLODIPine BESYLATE 10 MG TABLET (FP) PO SCH (09:27)
[2018-08-16] MEDS: ASPIRIN 81 MG CHEWABLE TABLETS PO SCH (09:27)
[2018-08-16] MEDS: AZITHROMYCIN IVPB 500 MG/250 ML BAG IVPB SCH (09:27)
[2018-08-16] MEDS: CEFTRIAXONE 2 GM in DEXTROSE 5%-WATER 100 ML IVPB SCH (09:28)
--- NOTE | 2018-08-16 11:01 | DS ---
Physical Examination Vital Signs: Vital Signs Temperature 98 F 08/16/18 05:59 Pulse Rate 92 H 08/16/18 05:59 Respiratory Rate 20 08/16/18 05:59 Blood Pressure 145/80 08/16/18 05:59 O2 Sat by Pulse Oximetry (%) 95 08/15/18 21:00 Constitutional: Yes: Well Nourished Eyes: Yes: WNL HENT: Yes: WNL Neck: Yes: WNL Cardiovascular: Yes: WNL Respiratory: Yes: WNL Gastrointestinal: Yes: WNL ...Rectal Exam: Yes: Deferred Renal/: Yes: WNL Breast(s): Yes: WNL Musculoskeletal: Yes: WNL Extremities: Yes: WNL Edema: No Integumentary: Yes: WNL Neurological: Yes: WNL ...Motor Strength: WNL Psychiatric: Yes: WNL Labs: CBC, BMP 08/16/18 06:00 08/15/18 05:30 Discharge Summary Reason For Visit: LIVER DISEASE,HYPOXIA,PNEUMONIA Current Active Problems Atelectasis (Acute) Hypoxia (Acute) Liver disease, unspecified (Acute) Mediastinal lymphadenopathy (Acute) Pneumonia (Acute) Condition: Good - Instructions Diet, Activity, Other Instructions: cont z sreedhar home ct out pt chest in 6 mths abd mri post d/c outpt cont all meds at home as is appt w nh sunday Referrals: Екатерина Sloan MD [Primary Care Provider] - Disposition: HOME - Home Medications Comprehensive Discharge Medication List: Ambulatory Orders Aspirin/Dipyridamole [Aggrenox] 1 combo PO DAILY 02/12/13 Atorvastatin Ca [Lipitor] 40 mg PO HS 02/12/13 Cyclobenzaprine HCl [Flexeril] 5 mg PO TID #12 tablet 03/06/13 Ibuprofen [Motrin] 800 mg PO TID #20 tablet 03/06/13 Oxycodone HCl/Acetaminophen [Percocet 5-325 mg Tablet] 1 - 2 tab PO Q6H #20 tablet 03/06/13 Albuterol 2.5/Ipratropium 0.5 [Duoneb -] 1 neb IH QID PRN #1 vial.neb. 08/13/18 Azithromycin [Zithromax Tri-S[place]har (3 DAYS) -] 500 mg PO DAILY #3 tablet 08/13/18 Prednisone [Prednisone 50 MG TABLETS] 50 mg PO DAILY #4 tablet MDD 1 tab
[2018-08-16 11:09] VITALS: BP 150/74; PULSE 85
== END 2018-08-16 13:24 | disposition home or self-care (01) | DRG 194 ==
LOC: JER 22:36 → JERBED 08-13 04:01 → J6S 08-13 08:28
PROVIDERS: ADMIT Family Medicine; ATTEND Family Medicine
DX: J18.9 Pneumonia, unspecified organism (principal); J98.11 Atelectasis; R06.82 Tachypnea, not elsewhere classified; R09.02 Hypoxemia; E78.00 Pure hypercholesterolemia, unspecified; E11.9 Type 2 diabetes mellitus without complications; M54.9 Dorsalgia, unspecified; R59.0 Localized enlarged lymph nodes; N40.0 Benign prostatic hyperplasia without lower urinary tract symptoms; N20.0 Calculus of kidney; K76.89 Other specified diseases of liver; Z85.46 Personal history of malignant neoplasm of prostate; Z87.891 Personal history of nicotine dependence; Z86.73 Personal history of transient ischemic attack (TIA), and cerebral infarction without residual deficits
CPT/HCPCS: 36415; 71045-TC-FY; 71046-TC-FY; 71275-TC; 76705-TC; 76775-TC; 76856-TC; 80048; 80053; 81003; 81015; 82550; 82803; 82947; 82962; 83036; 83605; 83880; 84153; 84484; 85025; 87040; 87070; 87205; 87804; 87899; 93005; 93010; 94010; 94640; 99282-25